=== PATIENT | male | born 1975 | race Caucasian/White ===

== ENCOUNTER 2023-03-17 22:30 | Outpatient (CLI) | payer BC, SELFPAY | END 2023-03-17 22:31 | disposition home or self-care (01) | LOC: AMB 03-20 10:47 | PROVIDERS: Visit Provider Emergency Medicine | DX: M25.561 Pain in right knee (principal) | CPT/HCPCS: A0425; A0427 ==

== ENCOUNTER 2023-03-17 22:53 | Emergency (ER) | payer BC, SELFPAY ==
[2023-03-17 22:57] VITALS: BP 150/96; PULSE 113; RESP 16; TEMP 37.1; O2SAT 98
--- NOTE | 2023-03-17 23:07 | CRLHL7_ITS ---
For Patients: As a result of the Century Cures Act, medical imaging exams and procedure reports are released immediately into your electronic medical record. You may view this report before your referring provider. If you have questions, please contact your health care provider. INDICATION: Lateral knee pain after tripping yesterday, injury TECHNIQUE: Knee radiograph 3 views right COMPARISON: None FINDINGS: Bone: No acute fractures or aggressive bone lesions are identified. Joint: The medial, lateral, and patellofemoral compartments are unremarkable. No significant knee effusion is seen. Soft tissue: Swelling noted anterior to the patella. No radiopaque foreign bodies are seen. IMPRESSION: 1. No acute osseous injuries or abnormalities are noted. Dictated by: Chau Leon MD @ 03/17/2023 23:34:51 (Electronically Signed)
--- NOTE | 2023-03-17 23:14 | ED_ITS ---
HPI - General Adult General Date Seen: 03/17/23 Chief complaint: Lower Extremity Swelling Stated complaint: Knee Injury Time Seen by Provider: 03/17/23 22:55 Source: patient and EMS Mode of arrival: EMS Limitations: no limitations History of Present Illness HPI narrative: Patient is a 47-year-old who comes in by EMS with complaints of right knee pain. He says he [place] in an area that was covered with leaves. He thought it was just small rocks but it was bigger rocks and he tripped. He does not know exactly what he did to his knee, he walked on it for quite a while after that but eventually started to develop pain in the lateral knee. Today he says it has been worse, the knee somewhat swollen. He called 911, paramedics said that he walked around his apartment for about 20 minutes looking for his belongings, but notes that it is now too painful to walk. Related Data Home Medications Medication Instructions Recorded Confirmed dextroamphetamine-amphetamine ER 1 cap PO DAILY 03/17/23 03/17/23 10 mg 24hr capsule,extend release dextroamphetamine-amphetamine ER 1 cap PO QAM 03/17/23 03/17/23 30 mg 24hr capsule,extend release gabapentin 800 mg tablet 800 mg PO 3XD PRN anxiety 03/17/23 03/17/23 mirtazapine 45 mg tablet 45 mg PO QPM PRN insomnia 03/17/23 03/17/23 Allergies Allergy/AdvReac Type Severity Reaction Status Date / Time No Known Drug Allergies Allergy Verified 03/17/23 22:57 Review of Systems Status of ROS: Reports: 6 or more systems reviewed and unremarkable except as noted in History and below Exam Narrative: Exam Narrative: Vital signs reviewed, afebrile. In general, alert, nontoxic male. Extremities: Examination of the right knee does show some swelling, indeterminate whether this is a joint effusion. He initially said that he could not do a straight leg raise because it is too painful, ultimately I did get him to raise his leg a couple of inches off the bed. He complains of pain with palpation along the lateral joint line as well as range of motion of the knee. Darcie's is negative. Stable to varus and valgus stress testing, does not seem to cause pain. There is no erythema or warmth. Const: Vital Signs, click to edit/add: Vital Signs - 24 hr 03/17/23 22:57 03/18/23 00:16 Temperature 98.7 F Pulse Rate [Pulse Oximeter] 113 H 72 Respiratory Rate 16 16 Blood Pressure [Ri ght Upper Arm] 150/96 H 148/62 H Pulse Oximetry 98 98 Oxygen Delivery Me thod Room Air Documenting provider has reviewed patient's vital signs: yes Course Course ED Course: I ordered x-rays of the right knee which by my review did not show any bony abnormalities. Final radiology report is normal, no significant joint effusion and no fractures or dislocation. There is some soft tissue swelling anterior to the patella. This is essentially what I see on exam as well he has moderate swelling anterior and superior to the patella. He has some diffuse tenderness in this area, it does not look significantly more erythematous than the left knee, but he also did really does not give a history of any significant injury and he has had what he describes as worsening pain throughout the day today to the point where he felt he needed to call an ambulance tonight. I elected to cover him with an antibiotic on the off chance that this represents a cellulitis. There is not a joint effusion and I do not think this represents a septic joint nor is it likely something like gout. It may simply represent sprain with above-average soft tissue swelling. I have asked him to return for significantly worsening symptoms, or to follow-up with orthopedics or primary care this week for recheck. Knee immobilizer plus or minus crutches for comfort. He requested something stronger for pain, does not have anything at home. Will give some ibuprofen here and I have given him a few oxycodone. Prescription database reviewed, he does take Adderall and gabapentin but does not have any narcotic prescriptions in the past year. Vital Signs Vital signs: Initial Vital Signs Temperature 98.7 F 03/17/23 22:57 Temperature Source Temporal Artery Scan 03/17/23 22:57 Pulse Rate 113 H 03/17/23 22:57 Pulse Strength 3+ Normal 03/17/23 22:57 Respiratory Rate 16 03/17/23 22:57 Blood Pressure 150/96 H 03/17/23 22:57 Blood Pressure Mean 114 H 03/17/23 22:57 Pulse Oximetry 98 03/17/23 22:57 Vital Signs Temperature 98.7 F 03/17/23 22:57 Pulse Rate 113 H 03/17/23 22:57 Respiratory Rate 16 03/17/23 22:57 Blood Pressure 150/96 H 03/17/23 22:57 Pulse Oximetry 98 03/17/23 22:57 Temperature 98.7 F 03/17/23 22:57 Pulse Rate 72 03/18/23 00:16 Respiratory Rate 16 03/18/23 00:16 Blood Pressure 148/62 H 03/18/23 00:16 Pulse Oximetry 98 03/18/23 00:16 Oxygen Delivery Method Room Air 03/18/23 00:16 Discharge Plan Discharge Clinical Impression: Acute knee pain Patient Disposition: Home, Self-Care Condition: Stable Instructions: Knee Pain (ED) Additional Instructions: Antibiotic as prescribed. I would recommend picking up a bottle of ibuprofen and taking 2 ibuprofen 3 times daily for the next several days. Oxycodone if needed for more severe pain. If you have worsening swelling, redness, pain, or other new symptoms such as fever, return to the emergency department. Otherwise I would like you to be seen in follow-up this week for recheck. You can follow- up with orthopedics, or with primary care [phone]. Prescriptions: No Action gabapentin 800 mg tablet 800 mg PO 3XD PRN (Reason: anxiety) mirtazapine 45 mg tablet 45 mg PO QPM PRN (Reason: insomnia) dextroamphetamine-amphetamine 10 mg capsule,extended release 24hr 1 cap PO DAILY dextroamphetamine-amphetamine 30 mg capsule,extended release 24hr 1 cap PO QAM Follow Up/Referrals: Provider,Not a Local [Primary Care Provider] - Stand Alone Forms: MyHealth Info Instructions
[2023-03-17] MEDS: IBUPROFEN 200 MG TABLET 400 MG PO (23:55)
[2023-03-18 00:16] VITALS: BP 148/62; PULSE 72; RESP 16; O2SAT 98
== END 2023-03-18 00:21 | disposition home or self-care (01) ==
PROVIDERS: Emergency Provider Emergency Medicine
DX: M25.561 Pain in right knee (principal)
CPT/HCPCS: 73562; 99283; 99284; A9270